=== PATIENT | male | born 1935 | race Caucasian/White ===

== ENCOUNTER → 2017-07-15 | Outpatient (CLI) | payer MEDICARE, BC ==
--- NOTE | 2017-07-15 22:05 | XR ---
EXAMINATION TYPE: XR bone survey complete DATE OF EXAM: 07/15/2017 COMPARISON: Chest radiograph 08/05/2013 HISTORY: 82-year-old male monoclonal gammopathy, right scapular pain TECHNIQUE: 17 views. FINDINGS: Calvarium: Scattered small lucent lesions are present, largest measuring 1.2 cm projecting just in front of the coronal suture. CHEST: Focal lucency distal third left clavicular shaft. Round punched-out lucency right seventh posterolateral rib and projecting over the junction of the se venth and ninth ribs. Focal cortical erosion along the superior margin of the left seventh anterolateral rib. Small left pleural effusion difficult to exclude. Humeri: Numerous rounded lucent lesions are present throughout the visualized humeral shaft, left greater deana n right by weight end osteal scalloping demonstrated in a few areas on the right. Cervical spine: Focal small lucencies within the mandible. Multilevel spondylotic changes in the cervical spine. Thoracic spine: Seen to better advantage are numerous lucent lesions throughout the clavicles and ribs. Mild anterio r wedging midthoracic vertebral body. Lumbar spine: Multilevel degenerative change. Vertebral body heights are maintained. Pelvis: Overlying bowel content limits assessment. Femurs: Numerous lucent lesions are present throughout. There is some focal cortical protuberance along the lateral aspect of the right mid femoral shaft. IMPRESSION: 1. Too numerous to count lucent lesions throughout the skeleton including the calvarium, mandible, cl avicles, ribs, humeri, and femurs. There is also mild anterior wedging of a mid thoracic vertebral dolly dy that could be on a pathologic basis. 2. Focal cortical protuberance along the lateral right mid femoral shaft. If the patient is on chroni c bisphosphonate use, the possibility of an early bisphosphonate insufficiency fracture should be con sidered. Consider nuclear medicine bone scan if clinically indicated.
== END | disposition home or self-care (01) ==
LOC: RADXRMAIN 15:18 → EDBD 15:18
PROVIDERS: ATTEND Internal Medicine Hematology & Oncology
DX: R93.7 Abnormal findings on diagnostic imaging of other parts of musculoskeletal system (principal); D47.2 Monoclonal gammopathy; E78.5 Hyperlipidemia, unspecified; N18.9 Chronic kidney disease, unspecified; E11.22 Type 2 diabetes mellitus with diabetic chronic kidney disease
CPT/HCPCS: 77075